=== PATIENT | female | born 1945 | race Caucasian/White ===

== ENCOUNTER 2018-02-05 14:06 | Emergency (ER) | payer OTHER ==
[2018-02-05 15:26] LABS: Urine Blood TRACE (NEG); Urine Glucose NEGATIVE (NEG); Urine Protein NEGATIVE (NEG); Urine Specific Gravity 1.015 (1.005-1.030)
[2018-02-05 15:34] LABS: Urine Bacteria <20 /HPF (<20); Urine Culture Reflex Order REFLEXED; Urine RBC NONE SEEN /HPF (NONE SEEN)
--- NOTE | 2018-02-05 16:23 | RAD REPORT ---
EXAM DESCRIPTION: CT - Abdomen Pelvis W Contrast - 02/05/2018 3:41 pm CLINICAL HISTORY: Fall, abdominal pain, back pain COMPARISON: None. TECHNIQUE: Biphasic, helical CT imaging of the abdomen and pelvis was performed following 100 ml non -ionic IV contrast. Oral contrast was given. All CT scans are performed using dose optimization technique as appropriate and may include automated exposure control or mA/KV adjustment according to patient size. FINDINGS: No suspicious findings in the lung bases. The liver, spleen, and pancreas show no suspicious findings. Cholecystectomy clips are present. No bi liary tree dilatation. Renal function is symmetric. No pyelonephritis or acute renal parenchymal process. No right-sided hyd ronephrosis. There is fullness of the left side pelvis and calices. Minimal fullness of the ureter is present. There is no obstructing calculus present. Mild cortical thinning changes are present. No py elonephritis or acute renal parenchymal process. Partially filled urinary bladder shows no suspicious findings. Uterus and ovaries show no suspicious findings. No dilated bowel loops or bowel wall thickening. Small hiatal hernia is present. Moderate stool volum e in the colon. Appendix is normal. No acute GI process seen. No free air, free fluid or inflammatory stranding. No hernia, mass or bulky lymphadenopathy. No hem atoma or soft tissue abnormality seen. Bony degenerative changes are present. No acute bone process i dentified. IMPRESSION: No hematoma, mass or other post trauma injury to the left flank or back region. Patient has mild dilatation of the left renal pelvis and calices without obstructing calculus. No del ayed or asymmetric function of the left kidney.
--- NOTE | 2018-02-05 16:59 | EDPHYS ---
Physician Documentation [facility] Name: Steff Jimenez Age: 72 yrs Sex: Female : 1945 Arrival Date: 02/05/2018 Time: 14:08 Bed 25 Private MD: Brian Shah ED Physician Han Gonzalez HPI: 02/05 17:01 This 72 yrs old Female presents to ER via Ambulatory with complaints of Back kb Pain, Fall Injury. 17:01 The patient presents with pain that is acute. The symptoms are located in the right kb flank. Onset: The symptoms/episode began/occurred 3 day(s) ago. The pain does not radiate. Associated signs and symptoms: The patient has no apparent associated signs or symptoms. The problem was sustained during a fall, while standing. Modifying factors: The patient symptoms are alleviated by nothing, the patient symptoms are aggravated by any movement. Severity of symptoms: At their worst the symptoms were moderate, in the emergency department the symptoms are unchanged. The patient has not experienced similar symptoms in the past. The patient has not recently seen a physician. Historical: - Allergies: 14:32 PENICILLINS; rv - Home Meds: 14:32 fenofibrate 145 Oral cap 1 cap once daily [Active]; metformin 500 mg Oral tab 2 tabs 2 rv times per day [Active]; valsartan-hydrochlorothiazide 160-12.5 mg Oral tab [Active]; - PMHx: 14:32 Diabetes - NIDDM; High Cholesterol; Hypertension; rv - PSHx: 14:32 GALL BLADDER REMOVED; rv - Immunization history:: Adult Immunizations up to date, Flu vaccine is not up to date. - Social history:: Smoking status: Patient/guardian denies using tobacco, never smoked. - Ebola Screening: : Patient negative for fever greater than or equal to 101.5 degrees Fahrenheit, and additional compatible Ebola Virus Disease symptoms Patient denies exposure to infectious person Patient denies travel to an Ebola-affected area in the 21 days before illness onset. ROS: 17:00 Constitutional: Negative for fever, chills, and weight loss, Cardiovascular: Negative kb for chest pain, palpitations, and edema, Respiratory: Negative for shortness of breath, cough, wheezing, and pleuritic chest pain, Abdomen/GI: Negative for abdominal pain, nausea, vomiting, diarrhea, and constipation, MS/Extremity: Negative for injury and deformity, Skin: Negative for injury, rash, and discoloration, Neuro: Negative for headache, weakness, numbness, tingling, and seizure. 17:00 Back: Positive for flank pain, on the right. Exam: 17:00 Constitutional: This is a well developed, well nourished patient who is awake, alert, kb and in no acute distress. Head/Face: Normocephalic, atraumatic. Chest/axilla: Normal chest wall appearance and motion. Nontender with no deformity. No lesions are appreciated. Cardiovascular: Regular rate and rhythm with a normal S1 and S2. No gallops, murmurs, or rubs. Normal PMI, no JVD. No pulse deficits. Respiratory: Lungs have equal breath sounds bilaterally, clear to auscultation and percussion. No rales, rhonchi or wheezes noted. No increased work of breathing, no retractions or nasal flaring. Abdomen/GI: Soft, non-tender, with normal bowel sounds. No distension or tympany. No guarding or rebound. No evidence of tenderness throughout. Skin: Warm, dry with normal turgor. Normal color with no rashes, no lesions, and no evidence of cellulitis. MS/ Extremity: Pulses equal, no cyanosis. Neurovascular intact. Full, normal range of motion. Neuro: Awake and alert, GCS 15, oriented to person, place, time, and situation. Cranial nerves II-XII grossly intact. Motor strength 5/5 in all extremities. Sensory grossly intact. Cerebellar exam normal. Normal gait. 17:00 Back: pain, that is moderate, of the right flank. Vital Signs: 14:33 BP 180 / 76; Pulse 67; Temp 98.1; Pulse Ox 100% on R/A; Weight 64.41 kg; Pain 7/10; rv 16:31 BP 188 / 110; Pulse 68; Pulse Ox 100% on R/A; rv 17:01 BP 218 / 99; Pulse 65; Pulse Ox 97% on R/A; Pain 7/10; rv 17:45 BP 190 / 91; Pulse 66; Resp 17 S; Pulse Ox 97% ; Pain 4/10; rv MDM: 14:49 Patient medically screened. kb 16:55 Data reviewed: vital signs, nurses notes. Data interpreted: Pulse oximetry: on room air kb is 100 %. Interpretation: normal. Counseling: I had a detailed discussion with the patient and/or guardian regarding: the historical points, exam findings, and any diagnostic results supporting the discharge/admit diagnosis, radiology results, the need for outpatient follow up, a family practitioner, to return to the emergency department if symptoms worsen or persist or if there are any questions or concerns that arise at home. 02/05 14:52 Order name: Creatinine for Radiology; Complete Time: 15:28 kb 02/05 15:14 Order name: Urine Microscopic Only; Complete Time: 15:35 eb 02/05 14:52 Order name: CT Abd/Pelvis - W/Contrast; Complete Time: 16:27 kb 02/05 15:17 Order name: Urine Dipstick--Ancillary (enter results); Complete Time: 15:28 eb 02/05 15:37 Order name: Urine Culture [facility] 02/05 14:52 Order name: IV Start; Complete Time: 15:04 kb 02/05 14:52 Order name: Urine Dipstick-Ancillary (obtain specimen); Complete Time: 15:04 kb 02/05 16:45 Order name: Vital Signs; Complete Time: 17:12 kb Administered Medications: 17:05 Drug: [place] (7.5 mg-325 mg) 1 tabs Route: PO; rv 17:46 Follow up: Response: Pain is decreased rv Disposition: 18:54 Co-signature as Attending Physician, Han Gonzalez MD. rn Disposition: 02/05/18 16:58 Discharged to Home. Impression: Fall on same level from slipping, tripping and stumbling, Back pain. - Condition is Stable. - Discharge Instructions: Back Pain, Adult, [id number]. - Medication Reconciliation Form, Thank You Letter, Antibiotic Education, Prescription Opioid Use form. - Follow up: Emergency Department; When: As needed; Reason: Worsening of condition. Follow up: Private Physician; When: 2 - 3 days; Reason: Recheck today's complaints, Continuance of care, Re-evaluation by your physician. Signatures: Dispatcher [employer] [facility] Karyna Cuellar, PARACHUTE MENDER-C PARACHUTE MENDER-CkHan Frazier MD MD rn Vicente, Ronaldo, RN RN rv Corrections: (The following items were deleted from the chart) 17:57 16:58 02/05/2018 16:58 Discharged to Home. Impression: Fall on same level from rv slipping, tripping and stumbling; Back pain. Condition is Stable. Forms are Medication Reconciliation Form, Thank You Letter, Antibiotic Education, Prescription Opioid Use. Follow up: Emergency Department; When: As needed; Reason: Worsening of condition. Follow up: Private Physician; When: 2 - 3 days; Reason: Recheck today's complaints, Continuance of care, Re-evaluation by your physician. kb
--- NOTE | 2018-02-05 16:59 | ER ---
Nurse's Notes [facility] Name: Steff Jimenez Age: 72 yrs Sex: Female : 1945 Arrival Date: 02/05/2018 Time: 14:08 Bed 25 Private MD: Brian Shah Diagnosis: Fall on same level from slipping, tripping and stumbling;Back pain Presentation: 02/05 14:28 Presenting complaint: Patient states: "I FELL LAST FRIDAY. I WAS AT THE [employer]. WENT DOWN TO SEE SOME FISH AND SLIPPED ON MY FLIP FLOPS. I HIT A ROCK WITH BACK (LEFT LOWER). NO VISIBLE BRUISE AT THAT MOMENT BUT THE PAIN GOT WORSE TODAY.". Transition of care: patient was not received from another setting of care. Onset of symptoms was February 03, 2018 at 08:00. Risk Assessment: Do you want to hurt yourself or someone else? Patient reports no desire to harm self or others. Initial Sepsis Screen: Does the patient meet any 2 criteria? No. Patient's initial sepsis screen is negative. Does the patient have a suspected source of infection? No. Patient's initial sepsis screen is negative. Care prior to arrival: None. 14:28 Method Of Arrival: Ambulatory 14:28 Acuity: CUCA 4 rv Triage Assessment: 14:34 General: Appears in no apparent distress. comfortable, Behavior is calm, cooperative. rv Pain: Complains of pain in LOWER BACK. Musculoskeletal: SMALL BRUISE. Historical: - Allergies: 14:32 PENICILLINS; rv - Home Meds: 14:32 fenofibrate 145 Oral cap 1 cap once daily [Active]; metformin 500 mg Oral tab 2 tabs 2 rv times per day [Active]; valsartan-hydrochlorothiazide 160-12.5 mg Oral tab [Active]; - PMHx: 14:32 Diabetes - NIDDM; High Cholesterol; Hypertension; rv - PSHx: 14:32 GALL BLADDER REMOVED; rv - Immunization history:: Adult Immunizations up to date, Flu vaccine is not up to date. - Social history:: Smoking status: Patient/guardian denies using tobacco, never smoked. - Ebola Screening: : Patient negative for fever greater than or equal to 101.5 degrees Fahrenheit, and additional compatible Ebola Virus Disease symptoms Patient denies exposure to infectious person Patient denies travel to an Ebola-affected area in the 21 days before illness onset. Screenin:33 Abuse screen: Denies threats or abuse. Denies injuries from another. Nutritional rv screening: No deficits noted. Tuberculosis screening: No symptoms or risk factors identified. Fall Risk None identified. Assessment: 15:30 General: Appears in no apparent distress. uncomfortable, Behavior is calm, cooperative. rv 15:30 Pain: Complains of pain in back Pain currently is 7 out of 10 on a pain scale. Neuro: rv Level of Consciousness is awake, alert, obeys commands, Oriented to person, place, time, situation. Cardiovascular: Capillary refill < 3 seconds. Respiratory: Airway is patent. GI: No signs and/or symptoms were reported involving the gastrointestinal system. : No signs and/or symptoms were reported regarding the genitourinary system. EENT: No signs and/or symptoms were reported regarding the EENT system. Derm: Bruising that is dark purple, yellow, on lower back small. 16:45 Reassessment: Patient appears in no apparent distress at this time. Patient and/or rv family updated on plan of care and expected duration. Pain level reassessed. Patient is alert, oriented x 3, equal unlabored respirations, skin warm/dry/pink. 17:46 Reassessment: awaiting CD of CT scan result. rv Vital Signs: 14:33 BP 180 / 76; Pulse 67; Temp 98.1; Pulse Ox 100% on R/A; Weight 64.41 kg; Pain 7/10; rv 16:31 BP 188 / 110; Pulse 68; Pulse Ox 100% on R/A; rv 17:01 BP 218 / 99; Pulse 65; Pulse Ox 97% on R/A; Pain 7/10; rv 17:45 BP 190 / 91; Pulse 66; Resp 17 S; Pulse Ox 97% ; Pain 4/10; rv ED Course: 14:08 Patient arrived in ED. mr 14:08 Brian Shah MD is Private Physician. mr 14:31 Triage completed. rv 14:34 Arm band placed on right wrist. rv 14:34 Patient has correct armband on for positive identification. Bed in low position. Call rv light in reach. Side rails up X 1. Pulse ox on. NIBP on. 14:49 Karyna Cuellar FNP-C is [facility]. kb 14:49 Han Gonzalez MD is Attending Physician. kb 15:00 Initial lab(s) drawn, by me, sent to lab. Inserted saline lock: 22 gauge in right rv antecubital area, using aseptic technique. Blood collected. 15:04 Creatinine for Radiology Sent. rv 15:23 Radiology exam delayed due to lab results not completed at this time. (BUN/Creatinine). vr 15:[address] via stretcher. vr 15:42 CT Abd/Pelvis - W/Contrast In Process Unspecified. EDMS 17:12 Urine Culture Sent. rv 17:46 No provider procedures requiring assistance completed. IV discontinued, bleeding rv controlled, No redness/swelling at site. Pressure dressing applied. Administered Medications: 17:05 Drug: [place] (7.5 mg-325 mg) 1 tabs Route: PO; rv 17:46 Follow up: Response: Pain is decreased rv Outcome: 16:58 Discharge ordered by MD. kb 17:46 Discharged to home ambulatory. rv 17:46 Condition: improved 17:46 Discharge instructions given to patient, family, Instructed on discharge instructions, follow up and referral plans. Demonstrated understanding of instructions, follow-up care. 17:57 Patient left the ED. rv Signatures: Dispatcher [employer] EDMS Karyna Cuellar FNP-C FNP-Sunshine Collado Victoria Rubén Silverio, RN RN rv
[2018-02-05] MEDS ORDERED: HYDROCODONE/APAP 7.5/325 MG TAB ONE (17:12)
[2018-02-05 18:15] VITALS: TEMP 98.1
[2018-02-05 18:17] VITALS: O2SAT 97
[2018-02-05 18:19] VITALS: BP 190/91
== END 2018-02-05 17:57 | disposition home or self-care (01) ==
LOC: ER 14:06
DX: M54.9 Dorsalgia, unspecified (principal); W01.0XXA Fall on same level from slipping, tripping and stumbling without subsequent striking against object, initial encounter; Y93.9 Activity, unspecified; Y92.9 Unspecified place or not applicable; Z88.0 Allergy status to penicillin; I10 Essential (primary) hypertension; E11.9 Type 2 diabetes mellitus without complications; E78.00 Pure hypercholesterolemia, unspecified
CPT/HCPCS: 36415; 74177; 87086; 87088; 99284; Q9967; 81003; 81015

== ENCOUNTER 2019-07-15 13:05 | Observation (INO) | payer OTHER ==
[2019-07-15 14:30] LABS: Absolute Lymphocytes (CBC) 1.2 K/uL (0.7-4.9); Basophils % 0.7 % (0-1.3); Hematocrit 38.2 % (36.0-45.0); Lymphocytes % 19.1 % (15.3-44.8); MPV 8.4 fL (7.6-11.3); RBC Red Blood Cell Count 4.36 M/uL (3.86-4.86)
--- NOTE | 2019-07-15 14:49 | RAD REPORT ---
EXAM DESCRIPTION: RAD - Chest Single View - 07/15/2019 2:37 pm CLINICAL HISTORY: Cough;Palpitations Chest pain. COMPARISON: No comparisons FINDINGS: Portable technique limits examination quality. The lungs are grossly clear. The heart is upper limit of normal in size. No displaced fractures. IMPRESSION: No acute intrathoracic process suspected.
[2019-07-15 14:53] LABS: ALT/SGPT 16 U/L (12-78); AST/SGOT 16 U/L (15-37); Albumin 3.8 g/dL (3.4-5.0); Alkaline Phosphatase 108 U/L (45-117); BUN Blood Urea Nitrogen 11 mg/dL (7-18); Bicarbonate 27 mmol/L (21-32); Bilirubin Direct 0.2 mg/dL (0-0.2); Bilirubin Total 0.8 mg/dL (0.2-1.0); Glucose Level 124 mg/dL (74-106); Magnesium 2.1 mg/dL (1.8-2.4); NT PRO-BNP 2088 pg/mL (<125); Potassium 3.6 mmol/L (3.5-5.1); Protein, Total 8.2 g/dL (6.4-8.2); Sodium Level 140 mmol/L (136-145); Troponin (Emerg Dept Use Only) < 0.02 ng/mL (0.0-0.045)
--- NOTE | 2019-07-15 16:02 | ER ---
Nurse's Notes [facility] Name: Steff Jimenez Age: 74 yrs Sex: Female : 1945 Arrival Date: 07/15/2019 Time: 13:07 Bed 13 Private MD: Brian Shah Diagnosis: Shortness of breath;Hypertensive heart disease;Palpitations Presentation: 07/14 13:47 Chief complaint: Patient states: dry cough, sore throat, tired, SOB X 2-3 days ago, no iw fever at home. Coronavirus screen: Patient reports a cough. Patient reports shortness of breath or difficulty breathing. Patient denies measured and/or subjective temperature greater than 100.4F prior to today's visit. Coronavirus screen: Surgical mask placed on patient. Patient moved to private room, placed in contact and droplet isolation with eye protection until further assessment. Patient denies travel on a cruise ship or to a country the [facility] currently lists as an affected area. Patient denies contact with known and/or suspected case of COVID-19. Ebola Screen: Patient negative for fever greater than or equal to 101.5 degrees Fahrenheit, and additional compatible Ebola Virus Disease symptoms Patient denies exposure to infectious person. Patient denies travel to an Ebola-affected area in the 21 days before illness onset. No symptoms or risks identified at this time. Initial Sepsis Screen: Does the patient meet any 2 criteria? No. Patient's initial sepsis screen is negative. Does the patient have a suspected source of infection? No. Patient's initial sepsis screen is negative. Risk Assessment: Do you want to hurt yourself or someone else? Patient reports no desire to harm self or others. Onset of symptoms was July 12, 2019. 13:47 Method Of Arrival: Ambulatory iw 13:47 Acuity: CUCA 4 iw 14:18 Acuity: CUCA 3 iw Historical: - Allergies: 13:48 PENICILLINS; iw - PMHx: 13:48 Diabetes - NIDDM; High Cholesterol; Hypertension; iw - PSHx: 13:48 GALL BLADDER REMOVED; iw - Immunization history:: Adult Immunizations up to date. - Social history:: Smoking status: Patient denies any tobacco usage or history of. Screenin:56 Abuse screen: Denies threats or abuse. Denies injuries from another. Nutritional ca1 screening: No deficits noted. Tuberculosis screening: No symptoms or risk factors identified. Fall Risk None identified. Assessment: 13:56 General: Appears in no apparent distress. comfortable, Behavior is calm, cooperative, ca1 appropriate for age. Pain: Denies pain. Neuro: Level of Consciousness is awake, alert, obeys commands, Oriented to person, place, time, situation, Appropriate for age. Cardiovascular: Heart tones S1 S2 present Capillary refill < 3 seconds Patient's skin is warm and dry. Respiratory: Reports shortness of breath cough that is Airway is patent Respiratory effort is even, unlabored, Respiratory pattern is regular, symmetrical, Breath sounds are clear bilaterally. GI: Abdomen is round Bowel sounds present X 4 quads. Abd is soft and non tender X 4 quads. : No signs and/or symptoms were reported regarding the genitourinary system. EENT: No signs and/or symptoms were reported regarding the EENT system. Derm: Skin is intact, is healthy with good turgor, Skin is pink, warm \T\ dry. Musculoskeletal: Circulation, motion, and sensation intact. Capillary refill < 3 seconds. 14:51 Reassessment: Patient appears in no apparent distress at this time. No changes from ca1 previously documented assessment. Patient and/or family updated on plan of care and expected duration. Pain level reassessed. Patient is alert, oriented x 3, equal unlabored respirations, skin warm/dry/pink. 15:40 Reassessment: Patient appears in no apparent distress at this time. No changes from ca1 previously documented assessment. Patient and/or family updated on plan of care and expected duration. Pain level reassessed. Patient is alert, oriented x 3, equal unlabored respirations, skin warm/dry/pink. 16:07 Reassessment: Dr. Chaves at bedside. ca1 16:30 Reassessment: Patient appears in no apparent distress at this time. Patient and/or ca1 family updated on plan of care and expected duration. Pain level reassessed. Patient is alert, oriented x 3, equal unlabored respirations, skin warm/dry/pink. 17:42 Reassessment: Patient appears in no apparent distress at this time. Patient and/or ca1 family updated on plan of care and expected duration. Pain level reassessed. Patient is alert, oriented x 3, equal unlabored respirations, skin warm/dry/pink. 17:49 Reassessment: PUI# [id number]. iw 18:40 Reassessment: Patient appears in no apparent distress at this time. Patient is alert, ca1 oriented x 3, equal unlabored respirations, skin warm/dry/pink. Vital Signs: 13:47 BP 157 / 100; Pulse 86; Resp 20 S; Temp 98.2; Pulse Ox 100% on R/A; iw 14:51 BP 179 / 101; Pulse 79; Resp 17 S; Pulse Ox 97% on R/A; ca1 15:40 BP 176 / 90; Pulse 78; Resp 18; Pulse Ox 97% on R/A; ca1 16:07 BP 183 / 86; Pulse 82; Resp 17 S; Pulse Ox 98% on R/A; ca1 17:00 BP 160 / 89; Pulse 81; Resp 16 S; Pulse Ox 100% on R/A; ca1 18:00 BP 179 / 90; Pulse 79; Resp 16 S; Pulse Ox 97% on R/A; ca1 ED Course: 13:07 Patient arrived in ED. as 13:08 Brian Shah MD is Private Physician. as 13:12 Jay Mcmillan MD is Attending Physician. kdr 13:48 Triage completed. iw 13:49 Stella Stern, RN is Primary Nurse. ca1 13:49 Arm band placed on. iw 13:56 Patient has correct armband on for positive identification. Bed in low position. Call ca1 light in reach. Side rails up X 1. Pulse ox on. NIBP on. 14:22 No provider procedures requiring assistance completed. Initial lab(s) drawn, by va, ca1 sent to lab. Inserted saline lock: 20 gauge in right antecubital area, using aseptic technique. Blood collected. 14:37 XRAY Chest (1 view) In Process Unspecified. EDMS 14:50 EKG done, by ED staff, reviewed by Jay Mcmillan MD. ca1 15:59 Brian Shah MD is Referral Physician. kdr 16:10 Seng Chaves is Hospitalizing Provider. kdr 17:58 COVID-19 Sent. eb 18:00 Health Dept notified/ COVID swab sent to lab/ PUI # [id number]/ lab notified. eb 18:15 Patient admitted, IV remains in place. ca1 Administered Medications: 16:08 Drug: LaSIX 40 mg Route: PO; ca1 18:18 Follow up: Response: No adverse reaction ca1 Outcome: 16:02 Discharge ordered by . [place] 16:11 Decision to Hospitalize by Provider. kdr 18:38 Admitted to Tele accompanied by tech, via wheelchair, room 413, with chart, Report ca1 called to CARMEN Menchaca 18:38 Condition: stable 18:38 Instructed on the need for admit. 18:50 Patient left the ED. ca1 Signatures: Dispatcher [employer] EDMS Jay Mcmillan MD MD kdr Martinez, Amelia as Williams, Irene, RN RN iw Yocasta Marin Cheryl RN RN ca1
--- NOTE | 2019-07-15 16:02 | EDPHYS ---
Physician Documentation [facility] Name: Steff Jimenez Age: 74 yrs Sex: Female : 1945 Arrival Date: 07/15/2019 Time: 13:07 Bed 13 Private MD: Brian Shah ED Physician Jay Mcmillan HPI: 07/14 17:40 This 74 yrs old Female presents to ER via Ambulatory with complaints of SOB, kdr Palpitatoins and cough. 17:40 The patient has shortness of breath with light activity, while exercising. Onset: The kdr symptoms/episode began/occurred suddenly, Last three night has awakened with palpitations and SOB. She had to sates that even walking in the day, she gets SOB. Duration: The symptoms are intermittent, Associated with exertion and at night and execi. The patient's shortness of breath is aggravated by coughing, exertion, light activity, walking. Associated signs and symptoms: Pertinent negatives:. Severity of symptoms: At their worst the symptoms were very mild mild in the emergency department the symptoms are unchanged. The patient has not experienced similar symptoms in the past. The patient has not recently seen a physician. The patient was told by her PCP to come to the ED and get tested f. Historical: - Allergies: 13:48 PENICILLINS; iw - PMHx: 13:48 Diabetes - NIDDM; High Cholesterol; Hypertension; iw - PSHx: 13:48 GALL BLADDER REMOVED; iw - Immunization history:: Adult Immunizations up to date. - Social history:: Smoking status: Patient denies any tobacco usage or history of. ROS: 17:40 Constitutional: Negative for fever, chills, and weight loss, Eyes: Negative for injury, kdr pain, redness, and discharge, ENT: Negative for injury, pain, and discharge, Neck: Negative for injury, pain, and swelling, Cardiovascular: Negative for chest pain, palpitations, and edema, Abdomen/GI: Negative for abdominal pain, nausea, vomiting, diarrhea, and constipation, Back: Negative for injury and pain, : Negative for injury, bleeding, discharge, and swelling, MS/Extremity: Negative for injury and deformity, Skin: Negative for injury, rash, and discoloration, Neuro: Negative for headache, weakness, numbness, tingling, and seizure activity. Psych: Negative for depression, anxiety, suicide ideation, homicidal ideation, and hallucinations, Allergy/Immunology: Negative for hives, rash, and allergies, Endocrine: Negative for neck swelling, polydipsia, polyuria, polyphagia, and marked weight changes, Hematologic/Lymphatic: Negative for swollen nodes, abnormal bleeding, and unusual bruising. 17:40 Respiratory: Positive for shortness of breath, Negative for shortness of breath. Exam: 17:40 Constitutional: This is a well developed, well nourished patient who is awake, alert, kdr and in no acute distress. Head/Face: Normocephalic, atraumatic. Eyes: Pupils equal round and reactive to light, extra-ocular motions intact. Lids and lashes normal. Conjunctiva and sclera are non-icteric and not injected. Cornea within normal limits. Periorbital areas with no swelling, redness, or edema. Neck: Trachea midline, no thyromegaly or masses palpated, and no cervical lymphadenopathy. Supple, full range of motion without nuchal rigidity, or vertebral point tenderness. No Meningismus. Chest/axilla: Normal chest wall appearance and motion. Nontender with no deformity. No lesions are appreciated. Cardiovascular: Regular rate and rhythm with a normal S1 and S2. No gallops, murmurs, or rubs. Normal PMI, no JVD. No pulse deficits. Respiratory: Lungs have equal breath sounds bilaterally, clear to auscultation and percussion. No rales, rhonchi or wheezes noted. No increased work of breathing, no retractions or nasal flaring. Abdomen/GI: Soft, non-tender, with normal bowel sounds. No distension or tympany. No guarding or rebound. No evidence of tenderness throughout. Back: No spinal tenderness. No costovertebral tenderness. Full range of motion. Skin: Warm, dry with normal turgor. Normal color with no rashes, no lesions, and no evidence of cellulitis. MS/ Extremity: Pulses equal, no cyanosis. Neurovascular intact. Full, normal range of motion. Neuro: Awake and alert, GCS 15, oriented to person, place, time, and situation. Cranial nerves II-XII grossly intact. Motor strength 5/5 in all extremities. Sensory grossly intact. Cerebellar exam normal. Normal gait. Psych: Awake, alert, with orientation to person, place and time. Behavior, mood, and affect are within normal limits. Vital Signs: 13:47 BP 157 / 100; Pulse 86; Resp 20 S; Temp 98.2; Pulse Ox 100% on R/A; iw 14:51 BP 179 / 101; Pulse 79; Resp 17 S; Pulse Ox 97% on R/A; ca1 15:40 BP 176 / 90; Pulse 78; Resp 18; Pulse Ox 97% on R/A; ca1 16:07 BP 183 / 86; Pulse 82; Resp 17 S; Pulse Ox 98% on R/A; ca1 17:00 BP 160 / 89; Pulse 81; Resp 16 S; Pulse Ox 100% on R/A; ca1 18:00 BP 179 / 90; Pulse 79; Resp 16 S; Pulse Ox 97% on R/A; ca1 MDM: 16:02 Patient medically screened. kdr 17:40 Data reviewed: vital signs, nurses notes, lab test result(s), radiologic studies. kdr Counseling: I had a detailed discussion with the patient and/or guardian regarding: the historical points, exam findings, and any diagnostic results supporting the discharge/admit diagnosis, lab results, radiology results, the need for outpatient follow up. 07/14 14:06 Order name: Basic Metabolic Panel; Complete Time: 15:49 kdr 07/14 14:06 Order name: CBC with Diff; Complete Time: 15:49 kdr 07/14 14:06 Order name: LFT's; Complete Time: 15:49 kdr 07/14 14:06 Order name: Magnesium; Complete Time: 15:49 kdr 07/14 14:06 Order name: NT PRO-BNP; Complete Time: 15:49 kdr 07/14 14:06 Order name: Troponin (emerg Dept Use Only); Complete Time: 15:49 kdr 07/14 14:06 Order name: XRAY Chest (1 view); Complete Time: 15:49 kdr 07/14 14:06 Order name: EKG; Complete Time: 14:07 kdr 07/14 14:37 Order name: Flu; Complete Time: 15:49 kdr 07/14 14:37 Order name: Strep; Complete Time: 15:49 kdr 07/14 15:15 Order name: Throat Culture EDMS 07/14 15:59 Order name: Holter Monitor (ORDER); Complete Time: 15:59 kdr 07/14 16:09 Order name: COVID-19 [facility] 07/14 14:06 Order name: Cardiac monitoring; Complete Time: 14:41 kdr 07/14 14:06 Order name: EKG - Nurse/Tech; Complete Time: 14:50 [facility] 07/14 14:06 Order name: IV Saline Lock; Complete Time: 14:21 [facility] 07/14 14:06 Order name: Labs collected and sent; Complete Time: 14:22 kdr 07/14 14:06 Order name: O2 Per Protocol; Complete Time: 14:22 [facility] 07/14 14:06 Order name: O2 Sat Monitoring; Complete Time: 14:22 kdr Administered Medications: 16:08 Drug: LaSIX 40 mg Route: PO; ca1 18:18 Follow up: Response: No adverse reaction ca1 Disposition: 07/15/19 16:11 Hospitalization ordered by Seng Chaves for Observation. Preliminary diagnosis are Shortness of breath, Hypertensive heart disease, Palpitations. - Bed requested for Telemetry/MedSurg (observation). - Status is Observation. ca1 - Condition is Fair. - Problem is new. - Symptoms are unchanged. Signatures: Dispatcher [employer] Sowmya Delgado RN RN dw Jay Mcmillan MD MD kdr Argenis Ramirez RN RN iw Stella Stern RN RN ca1 Corrections: (The following items were deleted from the chart) 16:09 16:02 07/15/2019 16:02 Discharged to Home. Impression: Palpitations; Shortness of kdr breath; Unspecified systolic (congestive) heart failure. Condition is Stable. Forms are Medication Reconciliation Form, Thank You Letter, Antibiotic Education, Prescription Opioid Use. Follow up: Brian Shah; When: 2 - 3 days; Reason: If symptoms return, Further diagnostic work-up, Recheck today's complaints, Continuance of care, Re-evaluation by your physician. Problem is an ongoing problem. Symptoms have improved. kdr 18:02 16:11 Hospitalization Ordered by Seng Chaves for Observation. Preliminary diagnosis dw is Shortness of breath; Hypertensive heart disease; Palpitations. Bed requested for Telemetry/MedSurg (observation). Status is Observation. Condition is Fair. Problem is new. Symptoms are unchanged. kdr 18:50 18:02 07/15/2019 16:11 Hospitalization Ordered by Seng Chaves for Observation. ca1 Preliminary diagnosis is Shortness of breath; Hypertensive heart disease; Palpitations. Bed requested for Telemetry/MedSurg (observation). Status is Observation. Condition is Fair. Problem is new. Symptoms are unchanged. dw
[2019-07-15] MEDS ORDERED: FUROSEMIDE 40 MG TABLET ONE (16:09)
--- NOTE | 2019-07-15 17:17 | P.HP ---
Certification for Inpatient Patient admitted to: Observation With expected LOS: <2 Midnights Practitioner: I am a practitioner with admitting privileges, knowledge of patient current condition, hospital course, and medical plan of care. Services: Services provided to patient in accordance with Admission requirements found in Title 42 Section 412.3 of the Code of Federal Regulations Patient History Date of Service: 07/15/19 Reason for admission: Shortness of breath History of Present Illness: 74-year-old woman with a known history of hypertension presented to the emergency department with a complaint of progressive shortness of breath of onset 3 days ago, along with nonproductive cough. Patient denies any fever. She denies any chest pain. She reported dyspnea mostly with exertion but endorsed palpatation. She denied any contact with Covid 19 positive patient. Her heart rate was normal on arrival. Workup in the ED revealed elevated BNP. Negative troponin EKG demonstrated sinus rhythm and LVH. Noted her systolic blood pressure was severely elevated to the 180s. Chest x-ray shows no infiltrate. Influenza and rapid strep screen are negative. There is a concern for new onset heart failure. Patient is placed under observation for further blood pressure control and to rule out heart failure. Patient is also being screened for Covid 19 given her cough and shortness of breath. Allergies Penicillins Allergy (Unknown, Verified 06/04/17 07:16) Unknown Home Medications: ALPRAZolam [Alprazolam] 0.5 mg PO Q8H PRN 06/04/17 Atorvastatin Calcium [Lipitor] 20 mg PO BEDTIME 06/04/17 Citalopram Hydrobromide [Citalopram HBr] 40 mg PO DAILY 06/04/17 Metformin HCl 1,000 mg PO BID 06/04/17 Valsartan/Hydrochlorothiazide [Valsartan-Hctz 160-12.5 mg Tab] 1 tab PO DAILY 06/04/17 - Past Medical/Surgical History Diabetic: No -: Reviewed -: high cholesterol -: Hypertension -: Reviewed - Family History Mother -: Hypertension, Kidney disease - Social History Smoking Status: Never smoker Alcohol use: No CD- Drugs: No Review of Systems Other: Except as documented, all other systems reviewed and negative. Physical Examination - Physical Exam General: Alert, In no apparent distress, Oriented x3 HEENT: Normocephalic, Mucous membr. moist/pink, Sclerae nonicteric Neck: Supple, JVD not distended Respiratory: Clear to auscultation bilaterally, Normal air movement Cardiovascular: No edema, Regular rate/rhythm, Normal S1 S2, No murmurs Capillary refill: <2 Seconds Gastrointestinal: Normal bowel sounds, Soft and benign, Non-distended, No tenderness Musculoskeletal: No swelling, No erythema Integumentary: No rashes Neurological: Normal speech, Normal strength at 5/5 x4 extr, Cranial nerves 3-12 intact - Studies Laboratory Data (last 24 hrs) 07/15/19 14:19: WBC 6.4, Hgb 12.6, Hct 38.2, Plt Count 230 07/15/19 14:19: Sodium 140, Potassium 3.6, BUN 11, Creatinine 0.91, Glucose 124 H, Magnesium 2.1, Total Bilirubin 0.8, AST 16, ALT 16, Alkaline Phosphatase 108 Microbiology Data (last 24 hrs): 07/15/19 14:38 Nasopharnyx Influenza Type A Antigen Screen - Final 07/15/19 14:38 Nasopharnyx Influenza Type B Antigen Screen - Final 07/15/19 14:38 Throat Group A Streptococcus Rapid Screen - Final Assessment and Plan - Problems (Diagnosis) (1) Accelerated hypertension Current Visit: Yes Status: Acute (2) Dyspnea on exertion Current Visit: Yes Status: Acute (3) Diabetes mellitus type 2 in nonobese Onset Date: 06/04/17 Current Visit: No Status: Acute - Plan Place patient under observation. Continue to trend troponin Aggressive blood pressure control. Continue home dose ARB. Start low dose amlodipine. Hydralazine IV p.r.n. for BP spikes. Trial of IV Lasix x1 dose Obtain echocardiogram. Further evaluation will be based on echo and troponin results. Bronchodilators p.r.n. Follow Covid 19 screen result. Continue metformin. Adding insulin sliding scale. - Advance Directives Does patient have a Living Will: No Does patient have a Durable POA for Healthcare: No
[2019-07-15] MEDS ORDERED: ONDANSETRON 4 MG/2 ML VIAL IV PRN (20:07)
[2019-07-15] MEDS ORDERED: ALBUTEROL 2.5 MG/3 ML NEB SOL NEB PRN (20:07)
[2019-07-15] MEDS ORDERED: FUROSEMIDE 40 MG/4 ML VIAL IV ONE (20:07)
[2019-07-15] MEDS ORDERED: HYDRALAZINE HCL 20 MG/ML VIAL IV PRN (20:07)
[2019-07-15 20:27] VITALS: BMI 26.5
[2019-07-15] MEDS ORDERED: POTASSIUM CL SA 10 MEQ TAB PO ONE (20:29)
[2019-07-15 20:56] LABS: Urine Appearance CLEAR; Urine Bilirubin NEGATIVE (NEG); Urine Blood TRACE (NEG); Urine Color YELLOW; Urine Glucose NEGATIVE (NEG); Urine Protein NEGATIVE (NEG); Urine Specific Gravity <=1.005 (1.005-1.030); Urine Urobilinogen 0.2 mg/dL (0.2-1.0)
[2019-07-15 20:57] LABS: Urine Microscopic Reflex ORDER UMIC
[2019-07-15] MEDS: INSULIN -REGULAR HUMAN 50 UNIT/0.5 ML ML SQ SCH (21:00)
[2019-07-15 21:11] LABS: Urine Bacteria <20 /HPF (<20); Urine Culture Reflex Order NOT NEEDED
[2019-07-15] MEDS: AMLODIPINE 5 MG TAB PO SCH (21:30)
[2019-07-16 04:32] LABS: Absolute Lymphocytes (CBC) 1.5 K/uL (0.7-4.9); Basophils % 0.6 % (0-1.3); Hematocrit 37.6 % (36.0-45.0); Lymphocytes % 19.3 % (15.3-44.8); MPV 8.6 fL (7.6-11.3); RBC Red Blood Cell Count 4.36 M/uL (3.86-4.86)
[2019-07-16 05:04] LABS: Magnesium 1.8 mg/dL (1.8-2.4); Phosphorus 3.3 mg/dL (2.5-4.9); Potassium 3.1 mmol/L (3.5-5.1); Thyroid Stimulating Hormone 2.55 uIU/mL (0.360-3.740)
[2019-07-16] MEDS ORDERED: MAGNESIUM SULFATE 1 gm IVPB 1 GM/100 ML BAG IV ONE (05:30)
[2019-07-16] MEDS ORDERED: POTASSIUM CL SA 10 MEQ TAB PO ONE ×2 (06:00→13:24)
[2019-07-16] MEDS ORDERED: ACETAMINOPHEN 325 MG TABLET PO PRN (06:15)
[2019-07-16] MEDS: AMLODIPINE 5 MG TAB PO SCH (07:18)
[2019-07-16] MEDS: INSULIN -REGULAR HUMAN 50 UNIT/0.5 ML ML SQ SCH ×3 (07:30→15:45)
--- NOTE | 2019-07-16 07:37 | EKG ---
Test Date: 2019-07-15 Test Time: 14:44:55 Student Liaison Officer: HUGH MEASUREMENT RESULTS: Intervals: Rate: 78 GA: 108 QRSD: 96 QT: 372 QTc: 424 [place]: P: 23 GA: 108 QRS: -9 T: -14 INTERPRETIVE STATEMENTS: Sinus rhythm with short GA Minimal voltage criteria for LVH, may be normal variant Nonspecific ST and T wave abnormality Abnormal ECG Compared to ECG 07/01/2003 11:11:00 Short GA interval now present Left ventricular hypertrophy now present ST (T wave) deviation still present Electronically Signed On 07-16-19 07:34:51 CDT by Tian Pineda
[2019-07-16] MEDS ORDERED: ATORVASTATIN 20 MG TAB PO SCH (09:00)
[2019-07-16] MEDS ORDERED: ENOXAPARIN 40 MG/0.4 ML SQ SCH (09:00)
[2019-07-16] MEDS ORDERED: PIOGLITAZONE 15 MG TAB PO SCH (09:00)
[2019-07-16] MEDS ORDERED: CITALOPRAM 10 MG TABLET PO SCH (09:00)
--- NOTE | 2019-07-16 14:58 | P.DS ---
Admission Date: 07/15/19 Discharge Date: 07/16/19 Disposition: ROUTINE DISCHARGE Discharge Condition: GOOD Reason for Admission: Shortness of breath Consultations: None - Problems (1) Accelerated hypertension Current Visit: Yes Status: Acute (2) Dyspnea on exertion Current Visit: Yes Status: Acute (3) Diabetes mellitus type 2 in nonobese Onset Date: 06/04/17 Current Visit: No Status: Acute Brief History of Present Illness: 74-year-old woman with a known history of hypertension presented to the emergency department with a complaint of progressive shortness of breath of onset 3 days ago, along with nonproductive cough. Patient denies any fever. She denies any chest pain. She reported dyspnea mostly with exertion. She also reported palpitation. She denied any contact with Covid 19 positive patient. Her heart rate was normal on arrival. Workup in the ED revealed elevated BNP and negative troponin. EKG demonstrated sinus rhythm and LVH. Noted her systolic blood pressure was severely elevated to the 180s. Chest x-ray shows no infiltrate. Influenza and rapid strep screen were negative. There was a concern for new onset heart failure. Patient was placed under observation for further blood pressure control and to rule out heart failure. Patient is also being screened for Covid 19 given her cough and shortness of breath. Hospital Course: Troponin trended came back negative. Patient was given a dose of IV Lasix which per patient helped her shortness of breath but she was still coughing. Swab sample for covid 19 has been sent and the result is pending. Echocardiogram has been ordered but will only be performed after Covid result is in. Her blood pressure responded well to a dose of oral amlodipine. Patient report moderate hypertension with her home dose Olmesartan. Amlodipine has been effective in lowering her blood to normal. Patient agrees to changing to Amlodipine. I spoke to Dr. Shah who agrees with change in patient's antihypertensives for now. Patient will also need an echocardiogram to be done as an outpatient. Dr. Shah will follow with patient on Friday next week. Patient is deemed clinically stable for discharge. Vital Signs/Physical Exam: Temp Pulse Resp BP Pulse Ox 97.3 F 77 18 100/53 L 96 07/16/19 10:59 07/16/19 10:59 07/16/19 10:59 07/16/19 10:59 07/16/19 10:59 Laboratory Data at Discharge: WBC 7.6 K/uL (4.3-10.9) D 07/16/19 04:20 Hgb 12.7 g/dL (12.0-15.0) 07/16/19 04:20 Hct 37.6 % (36.0-45.0) 07/16/19 04:20 Plt Count 231 K/uL (152-406) 07/16/19 04:20 Sodium 136 mmol/L (136-145) 07/16/19 04:20 Potassium 3.9 mmol/L (3.5-5.1) 07/16/19 12:24 BUN 11 mg/dL (7-18) 07/16/19 04:20 Creatinine 0.99 mg/dL (0.55-1.3) 07/16/19 04:20 Glucose 144 mg/dL (74-106) H 07/16/19 04:20 Phosphorus 3.3 mg/dL (2.5-4.9) 07/16/19 04:20 Magnesium 1.8 mg/dL (1.8-2.4) 07/16/19 04:20 Total Bilirubin 0.8 mg/dL (0.2-1.0) 07/15/19 14:19 AST 16 U/L (15-37) 07/15/19 14:19 ALT 16 U/L (12-78) 07/15/19 14:19 Alkaline Phosphatase 108 U/L (45-117) 07/15/19 14:19 Troponin I < 0.02 ng/mL (0.0-0.045) 07/16/19 04:20 Triglycerides 164 mg/dL (<150) H 07/16/19 04:20 Cholesterol 170 mg/dL (<200) 07/16/19 04:20 HDL Cholesterol 56 mg/dL (40-60) 07/16/19 04:20 Cholesterol/HDL Ratio 3.04 07/16/19 04:20 Home Medications: Atorvastatin Calcium [Lipitor*] 20 mg PO DAILY 06/04/17 Citalopram Hydrobromide [Citalopram HBr] 40 mg PO DAILY 06/04/17 Pioglitazone [Actos*] 1 tab PO DAILY 07/15/19 Amlodipine [Norvasc*] 5 mg PO DAILY #30 tab 07/16/19 New Medications: Amlodipine [Norvasc*] 5 mg PO DAILY #30 tab Diet: ADA Activity: Ad martina Followup: Brian Shah MD [Primary Care Provider] - 2-3 Days
[2019-07-16 15:04] VITALS: O2SAT 96
[2019-07-16 15:35] VITALS: BP 135/57; TEMP 98.5
[2019-07-16] MEDS ORDERED: ALBUTEROL 2.5 MG/3 ML NEB SOL NEB PRN (16:00)
== END 2019-07-16 17:45 | disposition home or self-care (01) ==
LOC: ER 13:05 → ERHOLD 17:32 → 4TH 18:42
PROVIDERS: ADMIT Internal Medicine; ATTEND Internal Medicine
DX: I10 Essential (primary) hypertension (principal); Z20.828 Contact with and (suspected) exposure to other viral communicable diseases; R06.00 Dyspnea, unspecified; E11.9 Type 2 diabetes mellitus without complications; R05 Cough; R00.2 Palpitations; E78.00 Pure hypercholesterolemia, unspecified; Z88.0 Allergy status to penicillin; Z82.49 Family history of ischemic heart disease and other diseases of the circulatory system; Z84.1 Family history of disorders of kidney and ureter
CPT/HCPCS: 93005; 87070; 85025 ×2; 80048 ×2; 36415; 83735 ×2; 84100; 84132; 80061; 82947 ×4; 80076; 87081; 84443; 84484 ×3; 83880 ×2; 87804 ×2; 71045; 94760 ×2; 99285; U0001; J1940; J1650; J3475; G0378 ×3; 81003; 81015

== ENCOUNTER 2019-08-12 07:33 | Day surgery (SDC) | payer OTHER ==
[2019-08-10 15:23] LABS: Absolute Lymphocytes (CBC) 1.4 K/uL (0.7-4.9); Basophils % 0.7 % (0-1.3); Hematocrit 36.5 % (36.0-45.0); Lymphocytes % 24.9 % (15.3-44.8); MPV 8.5 fL (7.6-11.3); RBC Red Blood Cell Count 4.13 M/uL (3.86-4.86)
[2019-08-10 15:29] LABS: Potassium 3.7 mmol/L (3.5-5.1)
[2019-08-10 15:31] LABS: Protime INR 1.03
--- OUTSIDE RECORDS SUMMARY | 2019-08-12 07:35 | XMS REPORT | Clinical Summary ---
:1945 Author Organization [facility] Address [address] [place] [address] Care Team Providers Name Role Phone Asked, No Pcp Primary Care Provider Unavailable Allergies Active Allergy Reactions Severity Noted Date Comments Penicillins 05/30/2018 Medications Medication Sig Dispensed Refills Start Date End Date Status atorvastatin Take 20 mg by mouth 1 04/28/2018 Active (LIPITOR) 20 MG daily. tablet citalopram (CeleXA) Take 40 mg by mouth 3 04/27/2018 Active 40 MG tablet daily. FLUZONE HIGH-DOSE TO BE ADMINISTERED 0 02/21/2018 Active 2018-19, PF, 180 BY PHARMACIST FOR mcg/0.5 mL syringe IMMUNIZATION IM injection fluticasone 2 sprays by Each 3 04/28/2018 Active (FLONASE) 50 Nare route daily. mcg/actuation nasal spray olmesartan (BENICAR) Take 20 mg by mouth 1 9 Active 20 MG tablet daily. JANUVIA 100 mg Take 100 mg by mouth 0 04/09/2018 Active tablet daily. Active Problems Not on file Social History Tobacco Use Types Packs/Day Years Used Date Never Smoker Smokeless Tobacco: Never Used Alcohol Use Drinks/Week oz/Week Comments No Alcohol Habits Answer Date Recorded How often do you have a drink containing alcohol? Never 05/30/2018 How many drinks containing alcohol do you have on a typical Not asked day when you are drinking? How often do you have six or more drinks on one occasion? No t asked Sex Assigned at Date Recorded Not on file Job Start Date Occupation Industry Not on file Not on file Not on file Travel History Travel Start Travel End No recent travel history available. Last Filed Vital Signs Not on file Plan of Treatment Health Maintenance Due Date Last Done Comments BREAST CANCER SCREENING 1997 COLONOSCOPY SCREENING 1997 SHINGLES VACCINES (#1) 1997 65+ PNEUMOCOCCAL VACCINE (1 of 2 - PCV13) 2012 INFLUENZA VACCINE 11/06/2019 Results Not on fileafter 08/11/2018 Insurance Payer Benefit Plan / Subscriber ID Effective Dates Phone Addre ss Type Group HUMANA MEDICARE HUMANA MEDICARE xxxxxxxxx 2018-Present PPO PPO/PFFS/ERS MCR Advance Directives For more information, please contact: [phone] Type Date Recorded Patient [employer] Explanati on Advance Directives, Living Will 05/30/2018 9:40 AM and Medical Power of [employer] Operator
[2019-08-12] MEDS ORDERED: NA CHLORIDE 0.9% 500 ML ONE (07:54)
[2019-08-12] MEDS ORDERED: HEPA 1000U/500MLS 1,000 UNIT/500 ML BAG IV ONE (08:35)
[2019-08-12] MEDS ORDERED: ATROPINE SULF 1 MG/10 ML SYR IV ONE (08:50)
[2019-08-12] MEDS ORDERED: FENTANYL CITR 100 MCG/2 ML ONE (08:50)
[2019-08-12] MEDS ORDERED: MIDAZOLAM HCL 2 MG/2 ML INJ ONE ×2 (08:50→09:06)
[2019-08-12] MEDS ORDERED: NA CHLORIDE 0.9% 0 ML ONE (08:50)
--- NOTE | 2019-08-12 09:56 | OP ---
Surgeon: Tian Pineda MD Belt Measurer: Jabari Joe. The patient will be at bed rest for 2 hours after the Angio-Seal. She will go home today and I will see her in the office in the next 2 weeks. Indications For Procedure: Ms. Jimenez is a patient of Dr. Shah. She is 74, had chest pain. No abnormal stress test. Admitted to the laboratory associate today as an outpatient for left heart catheterizat ion and selective coronary arteriogram. Description Of Procedure: The patient was prepped and draped in the routine sterile fashion. A 6-Fr ench sheath introduced in the right common femoral artery successfully. Angio-Seal was used to close the case. Don catheter left and right were used to do the diagnostic catheterization. Her RCA showed some mild to moderate distal plaquing. Her circumflex was normal and dominant. Her LAD was n ormal. Her left main was normal. 6-Kenyan catheters and sheath were used. There were no complicati ons. Blood Loss: 5 cc. Postoperative Diagnosis: Mild coronary artery disease. Anesthesia: Total conscious sedation was 30 minutes. Plan: Plan is for medical therapy. MONIKA/BECKI Voice ID: [id number] Report ID: [id number]
[2019-08-12 10:31] VITALS: TEMP 97.1
[2019-08-12 10:57] VITALS: O2SAT 96
[2019-08-12 11:28] VITALS: BP 133/80
== END 2019-08-12 11:25 | disposition home or self-care (01) ==
LOC: CCL 07:33
DX: I25.10 Atherosclerotic heart disease of native coronary artery without angina pectoris (principal); I67.89 Other cerebrovascular disease; I10 Essential (primary) hypertension; E78.2 Mixed hyperlipidemia; R06.00 Dyspnea, unspecified; R93.1 Abnormal findings on diagnostic imaging of heart and coronary circulation; E11.9 Type 2 diabetes mellitus without complications; Z88.0 Allergy status to penicillin
CPT/HCPCS: 85025; 80048; 36415; 85610; 82947; 85730; 93454; C1893; C1760; J2250 ×2; J3010; J7040; J0583

== ENCOUNTER 2023-04-29 09:44 | Day surgery (SDC) | payer OTHER ==
[2023-04-28 16:07] LABS: Absolute Lymphocytes (CBC) 1.9 K/uL (0.7-4.9); Hematocrit 35.9 % (36.0-45.0); Lymphocytes % 32.1 % (15.3-44.8); MCV 86.2 fL (80-100); MPV 7.9 fL (7.6-11.3); Platelets 248 thou/uL (152-406); RBC Red Blood Cell Count 4.16 M/uL (3.86-4.86)
[2023-04-28 16:19] LABS: Protime INR 1.02
[2023-04-28 16:26] LABS: Potassium 3.4 mEq/L (3.5-5.1)
[2023-04-29] MEDS ORDERED: CLINDAMYCIN 900MG/D5W 900 MG/50 ML IVPB IV ONE (10:09)
[2023-04-29] MEDS ORDERED: NA CHLORIDE 0.9% 1,000 ML ONE (10:09)
[2023-04-29] MEDS ORDERED: GABAPENTIN 100 MG CAP ONE (11:07)
[2023-04-29] MEDS ORDERED: Oxycodone HCl/Acetaminophen 5/325 MG TAB ONE (11:07)
[2023-04-29] MEDS ORDERED: ACETAMINOPHEN 500 MG TAB ONE (11:08)
[2023-04-29] MEDS ORDERED: CELECOXIB 100 MG CAPSULE ONE (11:09)
[2023-04-29] MEDS ORDERED: LIDOCAINE 2% MPF 5 ML VIAL ONE (13:18)
[2023-04-29] MEDS ORDERED: FENTANYL CITR 100 MCG/2 ML ONE (13:18)
[2023-04-29] MEDS ORDERED: ONDANSETRON 4 MG/2 ML VIAL ONE (13:18)
[2023-04-29] MEDS ORDERED: propofoL 200 MG/20 ML VIAL IV ONE (13:18)
[2023-04-29] MEDS ORDERED: dexAMETHasone 10 MG/ML VIAL ONE ×2 (13:27→14:08)
[2023-04-29] MEDS ORDERED: EPHEDRINE SULF 50 MG/ML VIAL ONE (13:36)
[2023-04-29] MEDS ORDERED: BUPIVACAINE 0.5% PF 10 ML VIAL ONE (14:08)
[2023-04-29] MEDS ORDERED: EPINEPHRINE 1 MG/ML VIAL ONE (14:08)
--- NOTE | 2023-04-29 15:21 | OP ---
Date of Procedure: 04/29/2023 Surgeon: Reid Melo MD Preoperative Diagnosis: Left displaced comminuted 2 part intra-articular distal radius fracture. Postoperative Diagnosis: Left displaced comminuted 2 part intra-articular distal radius fracture. Procedures: Open reduction and internal fixation using the Acumed II volar radius plating set with f ixation of 2 fragments. Estimated Blood Loss: Less than 10 cc. Complications: There were no complications. Specimen: No pathology specimen was sent. Indications For Operation: Ms. Jimenez is a 78-year-old female who unfortunately fell injuring he r left upper extremity. She was seen and examined in my office where she was found to be neurovascul azul intact. No sign of open injury, but she did have pain in her wrist as well as x-rays which demo nstrated a comminuted displaced intra-articular distal radius fracture. Risks, benefits, and alterna tives of different methods of treating this including closed treatment were discussed with both her a nd her family. They state they understand things as presented, but wished to proceed with operative fixation and intervention and risks associated with that are also expressed as well. They state they understand things as presented and they wishes to proceed. Description Of Procedure: Patient was taken to the operating room. General anesthesia was easily ob tained by the Anesthesia staff. A tourniquet was placed on superior left arm. Left upper extremity was then prepped and draped in the usual sterile fashion during the procedure. Following this, it wa s then elevated, but not exsanguinated. Tourniquet was raised. A standard volar approach of Juan w as then taken down carefully through skin only. Meticulous hemostasis being maintained using bipolar electrocautery. This leads down to the flexor carpi radialis and this was then moved radialward to protect the radial artery. Following this, the underlying sheath was then exploited and this allowed for identification of flexor pollicis longus and the flexor pollicis longus, muscle belly, and tendo n were then shifted ulnarward to protect the median nerve. This leads directly to the pronator quadr atus, which was then divided at its midsubstance and gently moved off the radius to allow for good po sitioning of the plate as well as the fracture fragments being visualized. After this, combination o f Webster elevator as well as manual traction was used to reduce the fracture and the volar radius plat ing set was then placed in standard fashion. Care being taken to ensure that the screws were not ove rly long and had good purchase from the fracture fragments. After this, x-rays were taken which demo nstrated a very good reduction and placement of the plate. The wound was then irrigated. Skin was c losed using nylon sutures. The patient was placed in a very well-padded sterile dressing as well as a volar splint and now await a block which had been previously discussed by the patient with Anesthes ia. /BECKI Voice ID: [id number] Report ID: [id number]
[2023-04-29] MEDS: HYDROMORPHONE HCL 1 MG/ML INJ ONE ×2 (15:25→15:30)
--- NOTE | 2023-04-29 15:35 | RAD REPORT ---
EXAM DESCRIPTION: RAD - Fluoroscopy <1 Hour - 04/29/2023 3:30 pm CLINICAL HISTORY: ORIF WRIST IN OR COMPARISON: No comparisons FINDINGS: Fluoroscopy time: 48 seconds
[2023-04-29 16:56] VITALS: BP 124/64; O2SAT 99
[2023-04-29 17:22] VITALS: TEMP 97.4
== END 2023-04-29 17:15 | disposition home or self-care (01) ==
LOC: OR 09:44
PROVIDERS: ATTEND Orthopaedic Surgery
PROC: 0PSJ04Z Reposition Left Radius with Internal Fixation Device, Open Approach (ICD-10-PCS; principal; 2023-04-29 12:30)
DX: S52.572A Other intraarticular fracture of lower end of left radius, initial encounter for closed fracture (principal); I10 Essential (primary) hypertension; Z86.73 Personal history of transient ischemic attack (TIA), and cerebral infarction without residual deficits
CPT/HCPCS: 85025; 80048; 36415; 85610; 82947 ×2; 85730; 25608; J2704; J2001; J3010; J1100 ×2; J0171; J1170; J2405; J7030; C1713 ×3; C1889; 76000

== ENCOUNTER 2024-12-22 06:31 | Day surgery (SDC) | payer OTHER ==
[2024-12-13 10:45] LABS: Absolute Lymphocytes (CBC) 1.4 K/uL (0.7-4.9); Hematocrit 34.9 % (36.0-45.0); Hemoglobin 11.6 g/dL (12.0-15.0); MCH 28.1 pg (27.0-35.0); MCHC 33.3 g/dL (32.0-36.0); MCV 84.4 fL (80-100); MPV 8.0 fL (7.6-11.3); Nucleated RBC Absolute Count 0.0 (0-0); Nucleated Red Blood Cells % 0.0 % (0-0); RBC Red Blood Cell Count 4.14 M/uL (3.86-4.86); White Blood Count 6.50 thou/uL (4.3-10.9)
[2024-12-13 10:54] LABS: PT Prothrombin Time 11.8 SECONDS (10-13.0); PTT, Activated Partial Thromb 31.9 SECONDS (27.2-37.4); Protime INR 1.05
[2024-12-13 11:10] LABS: Anion Gap 7.8 mEq/L (5.0-15.0); BUN Blood Urea Nitrogen 15.0 mg/dL (7-18); Glucose Level 168.0 mg/dL (74-106); Potassium 3.8 mEq/L (3.5-5.1)
--- NOTE | 2024-12-13 11:18 | RAD REPORT ---
EXAM: Chest Pa And Lat (2 Views) HISTORY: 79 years Female pre op COMPARISON: 07/15/2019 FINDINGS: LUNGS/PLEURA: The lungs are clear. No pleural effusions or pneumothorax. No pulmonary edema. CARDIAC/MEDIASTINUM: The cardiac silhouette is within normal limits. UPPER ABDOMEN: No significant abnormality. BONES: No acute abnormality. LINES/TUBES/OTHER: N/A IMPRESSION: No evidence of acute cardiopulmonary disease. No significant change from prior.
[2024-12-22] MEDS ORDERED: NA CHLORIDE 0.9% 500 ML ONE (06:36)
[2024-12-22] MEDS ORDERED: HEPARIN 5000 UNIT/ML 1 ML VIAL ONE (06:47)
[2024-12-22] MEDS ORDERED: LIDOCAINE 1% 20 ML MDV ONE (06:47)
[2024-12-22] MEDS ORDERED: HEPARIN 10,000 UNIT/10 ML VIAL IV ONE (06:47)
[2024-12-22] MEDS ORDERED: HEPA 1000U/500MLS 2,000 UNIT/1,000 ML BAG IV ONE (06:47)
[2024-12-22] MEDS ORDERED: NITROGLYCERIN/D5W 50 MG/250 ML BTL IV ONE (06:57)
[2024-12-22] MEDS ORDERED: FENTANYL CITR 100 MCG/2 ML ONE (06:59)
[2024-12-22] MEDS ORDERED: MIDAZOLAM HCL 2 MG/2 ML INJ ONE (06:59)
--- NOTE | 2024-12-22 08:14 | OP ---
Date of Procedure: 12/22/2024 Surgeon: ALLYN VIVEROS Procedure Performed: Selective bilateral renal angiogram. Indication: Renal artery stenosis by Doppler. Access: Right common femoral artery 6-Luxembourger closed with 6-Luxembourger Mynx closure device. Complications: None. Bleeding: Less than 50 mL. Total Sedation Time: 45 minutes, used fentanyl and Versed. Description Of Procedure: After risks, benefits, and alternatives were explained, the patient agreed to procedure and signed informed consent. [facility] and draped in the usual sterile fashion. Then, I accessed right common femoral arter y using micropuncture kit, ultrasound guidance, and fluoroscopy, placed 6-Luxembourger [place] sheath and took 6-Luxembourger DEANN catheter into the abdominal aorta, engaged left renal artery, took standard views a nd then the right renal artery took standard views and removed the catheter and the sheath, and 6-[place] nch Mynx closure device was used for closure with good hemostasis. Findings: 1. Right renal artery has proximal 50% stenosis. 2. Left renal artery is normal. Conclusion: Moderate right renal artery stenosis. Recommendation: Medical management. SR/MODL Voice ID: [id number] Report ID: [id number]
[2024-12-22 10:21] VITALS: O2SAT 97
[2024-12-22 10:23] VITALS: BP 142/70
== END 2024-12-22 10:05 | disposition home health service (06) ==
LOC: CCL 06:31
PROVIDERS: ATTEND Internal Medicine
DX: Q27.1 Congenital renal artery stenosis (principal); I25.10 Atherosclerotic heart disease of native coronary artery without angina pectoris; I34.0 Nonrheumatic mitral (valve) insufficiency; I10 Essential (primary) hypertension; E11.9 Type 2 diabetes mellitus without complications; Z79.82 Long term (current) use of aspirin; Z79.899 Other long term (current) drug therapy; Z88.0 Allergy status to penicillin; Z88.4 Allergy status to anesthetic agent; Z88.8 Allergy status to other drugs, medicaments and biological substances
CPT/HCPCS: 93005; 85025; 80048; 36415; 85610; 82947; 85730; 71046; 36252; 76937; C1893; Q9966; C1887; J2003; J2250; J3010; J1644; J7040; C1760; 99152; 99153